=== PATIENT | female | born 1940 | race Caucasian/White ===

== ENCOUNTER → 2019-09-04 12:28 | Outpatient (CLI) | payer MEDICARE, SELFPAY ==
--- NOTE | 2019-09-04 12:37 | XR_ITS ---
PROCEDURE: XR KNEE RT 3V CLINICAL INDICATION: RT ANTERIOR KNEE PAIN COMPARISON: No exams were available for comparison FINDINGS: No fracture or dislocation. No lytic or blastic change. There is normal mineralization. On the lateral view there is a faint lucency along the tibial plateau centrally. This is nonspecific and not readily identified on AP view and may be due to overlying artifact. There are minimal osteoarthritic changes of the medial compartment and patellofemoral joint. Other findings:Small suprapatellar effusion IMPRESSION: Minimal osteoarthritic change medial compartment and patellofemoral joint with small knee joint effusion Faint lucency over the tibial plateau on the lateral view nonspecific and may be due to artifact. If pain persists, CT or MRI may be of further value. Dictated by: José Miguel Campuzano MD 09/04/2019 15:21 Electronically signed by José Miguel Campuzano MD in [facility] 09/04/2019 15:21
== END ==
PROVIDERS: PCP Internal Medicine Adolescent Medicine; Visit Provider Internal Medicine Adolescent Medicine
DX: M25.561 Pain in right knee (principal)
CPT/HCPCS: 73562

== ENCOUNTER → 2019-10-02 12:25 | Outpatient (CLI) | payer MEDICARE, SELFPAY ==
--- NOTE | 2019-10-02 12:28 | CT_ITS ---
PROCEDURE: CT KNEE RT WO CON CLINICAL HISTORY: RT KNEE INJURY, RT MEDIAL KNEE PAIN Medial knee pain following injury COMPARISON: XR KNEE RT 3V from 09/04/2019 TECHNIQUE: Axial images obtained with sagittal and coronal reformats. All CT scans at the facility use one or more dose reduction, viz: automated exposure control, ma/kV adjustment per patient size (including targeted exams where dose is matched to indication, i.e. head), or iterative reconstruction technique. FINDINGS: No obvious fracture or dislocation is evident. There are mild osteoarthritic changes of the medial compartment and patellofemoral joint. There is a small knee joint effusion. No fat fluid level evident. There is a small Dobbins's cyst. IMPRESSION: 1. No acute fracture. 2. Mild osteoarthritic change. 3. Knee joint effusion Dictated by: José Miguel Campuzano MD 10/03/2019 12:26 Electronically signed by José Miguel Campuzano MD in [facility] 10/03/2019 12:26
== END ==
PROVIDERS: PCP Internal Medicine Adolescent Medicine; Visit Provider Internal Medicine Adolescent Medicine
DX: S80.01XA Contusion of right knee, initial encounter (principal); M25.561 Pain in right knee
CPT/HCPCS: 73700

== ENCOUNTER → 2020-03-16 07:12 | Outpatient (CLI) | payer MEDICARE, SELFPAY ==
--- NOTE | 2020-03-16 | CA_ITS ---
APPROVED REPORT Exam: Exercise Treadmill Technologist: Lucie Hummel Ht: 5 ft 0 in Wt: 140 lbs BSA: 1.60 m2 HR: 73 bpm BP: 151/74 mmHg Indications: Chest pain Stress Test Details Test: Vu HR Resting HR: 80 bpm Max Heart Rate (APMHR): 140 bpm Max HR Achieved: 169 bpm Target HR (85% APMHR): 119 bpm % of APMHR: 120 Recovery HR: 89 bpm BP Resting BP: 151.0/74.0 mmHg Max BP: 202.0/91.0 mmHg Recovery BP: 172.0/81.0 mmHg ECG Clinical Exercise duration: 04:20 min Highest Stage Achieved: Exercise capacity: 7.0 METs Stress ECG Conclusion Resting ECG: Sinus rhythm Vu protocol completed. Patient exercised 04:24. Test stopped due to shortness of breath. Symptoms: Shortness of breath at peak exercise. Resolved in recovery. No chest pain. Arrhythmias/Ectopy: Occasional PAC ST-T Changes: Less than 1.[address] depression. Conclusion: Images to follow. Test Summary RECOVERY 04:00 0.0 0.0 91 . 202/ 91 . . REST 16:01 0.0 0.0 80 . 151/ 74 . . Stage 1 01:00 10.0 1.7 98 . . . . Stage 1 02:00 10.0 1.7 116 . . . . Stage 1 03:00 10.0 1.7 129 . 158/ 80 . . Stage 2 . . . . . . . Cardiolite injected Stage 2 01:00 12.0 2.5 138 . . . . Stage 2 01:20 12.0 2.5 140 . . . Stop exercise at 04:20 RECOVERY 01:00 0.0 0.0 121 . 170/ 88 . . RECOVERY 02:00 0.0 0.0 144 . 170/ 88 . . RECOVERY 03:00 0.0 0.0 98 . 170/ 88 . . RECOVERY 04:00 0.0 0.0 91 . 202/ 91 . . RECOVERY 05:00 0.0 0.0 90 . 172/ 81 . . RECOVERY 05:20 0.0 0.0 91 . 172/ 81 . . Electronically signed by : He Gutierrez, 03/16/2020 19:48:34
--- NOTE | 2020-03-16 07:19 | NM_ITS ---
APPROVED REPORT Exam: Nuclear Stress Test Indication: calli hebert c.p., jorden ekg Patient Location: Outpatient Stress Tech: Lucie Hummel [place] Tech:MARY Tan RT (R)(N)(M) Ht: 5 ft 0 in Wt: 140 lbs Bra Size: 34D HR: 73 bpm BP: 151/74 mmHg BSA: 1.60 m2 History: calli hebert c.p., jorden ekg Procedure: Patient exercised on Vu protocol 5:00 minutes and sec, resting heart rate 73 bpm, resting blood pressure 151/74 mmHg, with exercise maximum heart rate achived was 169 bpm which is % of the maximum predicted heart rate and blood pressure was 202/98 mmHg. Patient denied any complaint of chest pain. Patient has Adequate exercise capacity, achieved 7.0 METs of workload on treadmill, the blood pressure response to exercise was Hypertensive. Electrocardiogram Resting electrocardiogram shows sinus rhythm nonspecific ST-T changes, with exercise there is a millimeter ST segment depression noted from the baseline EKG which were more pronounced in the recovery. The EKG portion of the exercise Myoview is positive for ischemia. Cardiac Stress and Resting SPECT Images: Cardiac Stress and Resting SPECT images were obtained using technetium 99m Myoview 31.5 mCi stress and 10.35 mCi at rest. Gated SPECT for analysis of segmental wall motion and calculation of the ejection fraction also done. Cardiac stress and resting SPECT images show uniform myocardial activity without segmental perfusion abnormality, computer derived ejection fraction is over 65% with no regional wall motion abnormality, right ventricle is normal size and contractility. Conclusion: 1. The EKG portion of the exercise Myoview is positive for ischemia, patient has adequate exercise capacity achieved 7 mets of workload on treadmill, the blood pressure response to exercise was hypertensive, there was no exercised induced chest discomfort. 2. No scintigraphic evidence of reversible ischemia seen at this level of exercise, computer derived ejection fraction is over 65% with no regional wall motion abnormality, right ventricle is normal size and contractility. 3. Equivocal exercise myocardial perfusion imaging Electronically signed by : He Gutierrez, 03/16/2020 19:51:42
[2020-03-20] VITALS (7 sets, daily range): BP systolic 128–166; BP diastolic 69–89; PULSE 63–83; RESP 18–20; TEMP 36.7; O2SAT 97–99; BMI 27.3
[2020-03-20 13:11] LABS: Basophils # 0.1 K/mm3 (0-0.2); Basophils % 0.8 % (0.1-2.0); Chloride 104 mmol/L (98-107); Eosinophils % 0.4 % (0.1-12.0); Hematocrit 45.5 % (37.0-47.0); Lymphocytes # 2.3 K/mm3 (0.7-4.5); Lymphocytes % 31.7 % (10-50); Mean Corpuscular Volume 96.8 fl (81-99); Mean Platelet Volume 7.3 fl (7.4-10.4); Monocytes # 0.4 K/mm3 (0.1-1.0); Neutrophils # 4.4 K/mm3 (1.8-7.8); Neutrophils % 62.2 % (37.0-80.0); Platelet Count 275 K/mm3 (142-424); Potassium 3.6 mmoL/L (3.5-5.1); Red Cell Distribution Width 13.4 % (11.5-17.5); Sodium 140 mmol/L (136-145); White Blood Count 7.1 K/mm3 (4.8-10.8)
[2020-03-20 13:14] LABS: Anion Gap 12.6 mEq/L (5-15); Blood Urea Nitrogen 15 mg/dl (7-17); Carbon Dioxide 27 mmol/L (22.0-30.0); Creatinine Clearance Estimated 45 mL/min (50-200); Estimated Glomerular Filt Rate 69 ml/min (>60); GFR (African American) 84 ML/MIN (>60)
[2020-03-20 13:20] LABS: Calcium 9.5 mg/dl (8.4-10.2)
[2020-03-20 13:29] LABS: Glucose 163 mg/dl (74-100)
--- NOTE | 2020-03-20 16:35 | HMH.PHACLD ---
Vanesa Munoz has received discharge medication counseling on the following medications: NEW MEDICATIONS: BRILINTA, ASPIRIN, ATORVASTATIN, METOPROLOL DRUG MONOGRAPHS WERE GIVEN AND PATIENT DID NOT HAVE ANY QUESTIONS. PATIENT WILL NOT BE STARTED ON AN GOGO OR ARB AT THIS TIME. THIS IS DOCUMENTED ON CHECKLIST BY
== END ==
PROVIDERS: Internal Medicine; PCP Internal Medicine Adolescent Medicine; Visit Provider Internal Medicine Adolescent Medicine
DX: R07.9 Chest pain, unspecified (principal); R94.31 Abnormal electrocardiogram [ECG] [EKG]
CPT/HCPCS: 78452; 80048; 85025; 93017; A9502

== ENCOUNTER → 2020-03-20 12:16 | Day surgery (SDC) | payer MEDICARE, SELFPAY ==
[2020-03-20] VITALS (10 sets, daily range): BP systolic 128–148; BP diastolic 59–83; PULSE 67–81; RESP 16–20; O2SAT 97–100; BMI 26.3
--- NOTE | 2020-03-20 12:21 | IR_ITS ---
APPROVED REPORT Patient Location: Outpatient Solution Advisor: MARY Mabry RT (R) PROCEDURES Left heart catheterization Left ventriculogram Selective coronary angiogram Drug-eluting stent deployment to the proximal LAD INDICATION Coronary artery disease, Unstable angina, Informed consent was obtained prior to the procedure. COMPLICATIONS NONE Estimated Blood Loss: LESS THAN 10 ML TECHNIQUE One percent lidocaine used to anesthetize the right anterior aspect of the wrist. The right radial artery was accessed via the Seldinger technique. A 6 Mongolian sheath was placed in the right radial artery. 2.5 mg of verapamil, 800 mcg of nitroglycerin, 1mg Lidocaine and 5000 U Heparin were given through the arterial sheath. The trap catheter was also used to perform left heart catheterization, left ventriculogram and selective coronary angiogram. At the end of the diagnostic angiogram therapeutic heparin was administered giving a therapeutic ACT. An EBU 3.5 guide catheter was used to intubate the left main artery and a Choice PT extra-support wire was placed distally in the LAD. A 3 mm x 18 mm resolute ronn stent was deployed at 18 lisandro reducing the severe stenosis to 0%. The 2 diagonal arteries that were jailed in the process remained open with MAXIMINO-3 flow. After achieving excellent angiographic results with MAXIMINO-3 flow down the vessel before and after the procedure the apparatus was removed the sheath was removed good hemostasis was achieved using TR banding patient was transferred to the postop holding area in stable condition ANGIOGRAPHIC RESULTS The left main artery Normal The left anterior descending artery Has an eccentric 70 to 80% proximal stenosis followed by additional 30% mid vessel stenoses. There is a large first diagonal artery which has an ostial 50 to 60% stenosis while a second large diagonal artery has an ostial 50% and a proximal 60 to 70% stenosis. The circumflex artery Is a nondominant yet still large vessel which has a 50% stenosis in a proximal large bifurcating second obtuse marginal artery. The right coronary artery Is dominant and has proximal 20% mid vessel 30 to 40% stenoses The CONNER ventriculogram reveals Hyperdynamic at 75% The left ventricular end-diastolic pressure 10 mmHg IMPRESSION Severe single-vessel coronary disease involving the proximal LAD Successful stenting the proximal ID severe disease reduced to 0% with one drug-eluting stent Persistent moderate to severe stenoses in the ostial proximal segment of the large first and second diagonal arteries Hyperdynamic ventricle Normal left ventricular end-diastolic pressure PLAN 1. Brilinta plus aspirin 2. LDL less than 55 3. Cardiac rehabilitation 4. Avoidance of tobacco products 5. I recommend treating the bifurcating diagonal arteries medically. Should patient develop recalcitrant angina we could consider opening these vessels however medical literature supports medical management especially given the MAXIMINO-3 flow down these vessels. Electronically signed by : Seun Beebe, 03/20/2020 13:24:55
[2020-03-20 14:05] LABS: CATHL Activated Clotting Time 254 SEC (74-125)
== END ==
PROVIDERS: PCP Internal Medicine Adolescent Medicine; Visit Provider Internal Medicine
DX: R94.31 Abnormal electrocardiogram [ECG] [EKG]; R94.39 Abnormal result of other cardiovascular function study; Z82.49 Family history of ischemic heart disease and other diseases of the circulatory system; I25.118 Atherosclerotic heart disease of native coronary artery with other forms of angina pectoris; Z88.0 Allergy status to penicillin; Z79.82 Long term (current) use of aspirin; Z79.899 Other long term (current) drug therapy
CPT/HCPCS: 85347; 92928; 93458; 99152; 99153; C1725; C1769; C1876; C9600; J1644; Q9967

== ENCOUNTER 2020-08-17 12:57 | Day surgery (SDC) | payer MEDICARE, SELFPAY ==
[2020-08-17] VITALS (10 sets, daily range): BP systolic 115–172; BP diastolic 45–85; PULSE 66–84; RESP 16–18; TEMP 36.6; O2SAT 94–98; BMI 25.4
--- NOTE | 2020-08-17 | IR_ITS ---
APPROVED REPORT Patient Location: Outpatient Degre[facility] Solution Reclaimer: MARY Parrish RT (R) PROCEDURES Left heart catheterization Left ventriculogram Selective coronary angiogram Drug-eluting stent deployment to the ostial through proximal and mid first diagonal artery in a contiguous manner Drug-eluting stent deployment to the ostial proximal left main artery INDICATION Coronary artery disease, Angina pectoris/unstable angina, Dynamic EKG changes Informed consent was obtained prior to the procedure. COMPLICATIONS None Estimated Blood Loss: less than 10 ml TECHNIQUE One percent lidocaine used to anesthetize the right anterior aspect of the wrist. The right radial artery was accessed via the Seldinger technique. A 6 Namibian sheath was placed in the right radial artery. 2.5 mg of verapamil, 800 mcg of nitroglycerin, 1mg Lidocaine and 5000 U Heparin were given through the arterial sheath. The Agnes catheter was also used to perform left heart catheterization, left ventriculogram and selective coronary angiogram. At the end the diagnostic angiogram therapeutic heparin was administered producing a therapeutic ACT. A Choice PT extra-support wire and guide liner were used to provide angioplasty to the first diagonal artery. Each time manipulation was being performed or a guide liner was advanced into the left main artery there was significant dampening with profound EKG abnormalities. Angiography demonstrated a severe ostial left main stenosis and it was decided due to the severe dampening with loss of aortic pressure and dynamic EKG changes to stent the ostial left main artery. A 3.5 x 8 mm resolute ronn stent was deployed at 20 lisandro reducing the stenosis and allowing the procedure to proceed without dampening or EKG changes. Eventually the apparatus was removed and an EBU 3.75 guide catheter was used to cannulate the left main artery however there was difficulty getting this in the left main artery therefore a 6 Namibian JL 3 guide catheter was eventually used to cannulate the left main artery. A Choice PT wire was placed into the diagonal artery and eventually this was predilated which allowed delivery of a 2 mm x 26 mm resolute ronn stent at 18 lisandro reducing the critical and severe stenosis to 0%. The stent stuck back into the ostial segment of the diagonal artery just into the left anterior descending artery. After achieving excellent angiographic results with MAXIMINO II flow at the beginning of the procedure followed by MAXIMINO-3 at the end of the procedure and additional stent was placed into the left main artery because it appeared the wire went through a side strut. Prior to stenting the diagonal artery 3.5 mm balloon was used to open the side struts to allow advancement of the guide liner and better cannulation of the JL 3 guide catheter. Because this was the left main artery with a side strut access it was decided another 3.5 x 8 mm resolute ronn stent should be placed in the ostial proximal segment of the left main artery. This was deployed at 24 lisandro and reducing the stenosis to 0%. Excellent angiographic results were obtained. At the end of the procedure the apparatus was removed the sheath was removed and hemostasis was achieved using TR banding patient was transferred to the postop holding in stable condition. Throughout the interventional procedure additional heparin was administered to maintain the therapeutic ACT ANGIOGRAPHIC RESULTS The left main artery Is an ostial eccentric 80% stenosis The left anterior descending artery Has a stent in the proximal segment which is widely patent free of in-stent restenosis with excellent proximal distal transitioning. The mid segment has additional 20 t
[2020-08-17 13:32] LABS: Basophils # 0.1 K/mm3 (0-0.2); Basophils % 0.7 % (0.1-2.0); Eosinophils # 0.1 K/mm3 (0.0-0.4); Eosinophils % 0.6 % (0.1-12.0); Hematocrit 46.7 % (37.0-47.0); Hemoglobin 16.1 g/dL (12.2-16.2); Lymphocytes # 2.3 K/mm3 (0.7-4.5); Lymphocytes % 26.7 % (10-50); Mean Corpuscular HGB Conc 34.4 g/dL (31.8-35.4); Mean Corpuscular Hemoglobin 33.8 pg (27.0-31.2); Mean Corpuscular Volume 98.1 fl (81-99); Mean Platelet Volume 7.6 fl (7.4-10.4); Monocytes # 0.4 K/mm3 (0.1-1.0); Monocytes % 4.6 % (1.7-9.3); Neutrophils # 5.8 K/mm3 (1.8-7.8); Neutrophils % 67.4 % (37.0-80.0); Platelet Count 271 K/mm3 (142-424); Red Blood Count 4.76 M/mm3 (4.20-5.40); Red Cell Distribution Width 13.1 % (11.5-17.5); White Blood Count 8.6 K/mm3 (4.8-10.8)
[2020-08-17 13:34] LABS: Chloride 102 mmol/L (98-107)
[2020-08-17 13:35] LABS: Potassium 3.7 mmoL/L (3.5-5.1); Sodium 139 mmol/L (136-145)
[2020-08-17 13:38] LABS: Anion Gap 11.7 mEq/L (5-15); Blood Urea Nitrogen 18 mg/dl (7-17); Calcium 9.5 mg/dl (8.4-10.2); Carbon Dioxide 29 mmol/L (22.0-30.0); Creatinine Clearance Estimated 45 mL/min (50-200); Estimated Glomerular Filt Rate 60 ml/min (>60); GFR (African American) 73 ML/MIN (>60); Glucose 153 mg/dl (74-100)
[2020-08-17 14:04] LABS: Coronavirus 19 IgG Antibody Negative (Negative)
[2020-08-17 14:05] LABS: Coronavirus 19 IgM Antibody Positive (Negative)
[2020-08-17 15:24] LABS: CATHL Activated Clotting Time 281 SEC (74-125)
[2020-08-17 15:26] LABS: CATHL Activated Clotting Time 303 SEC (74-125)
--- NOTE | 2020-08-17 15:41 | HMH.PHACLD ---
Vanesa Munoz has received discharge medication counseling on the following medications: PATIENT IS CURRENTLY TAKING ASPIRIN 81 MG DAILY, BRILINTA 90 MG BID, LOSARTAN 25 MG DAILY, ATORVASTATIN 40 MG HS, AND METOPROLOL 50 MG DAILY. PATIENT ALSO IS PRESCRIBED ISOSORBIDE MONONITRATE ER 30 MG DAILY.
--- NOTE | 2020-08-20 08:11 | HMH.PHACLD ---
Vanesa Munoz has received discharge medication counseling on the following medications: CONTINUE MEDICATIONS: METOPROLOL, LOSARTAN, LIPITOR, BRILINTA, ASPIRIN
== END 2020-08-17 18:38 | disposition home or self-care (01) ==
LOC: CATHLAB 13:01
PROVIDERS: PCP Internal Medicine Adolescent Medicine; Visit Provider Internal Medicine
DX: I25.110 Atherosclerotic heart disease of native coronary artery with unstable angina pectoris (principal); I10 Essential (primary) hypertension; Z88.0 Allergy status to penicillin; Z79.01 Long term (current) use of anticoagulants; Z79.82 Long term (current) use of aspirin; Z79.899 Other long term (current) drug therapy; R50.9 Fever, unspecified
CPT/HCPCS: 80048; 85025; 85347; 86328; 92928; 93458; 99152; 99153; C1725; C1769; C1876; C9600; J1644; Q9967; U0003

== ENCOUNTER → 2020-08-19 10:21 | Outpatient (CLI) | payer MEDICARE, SELFPAY ==
[2020-08-19 10:43] LABS: Basophils # 0.1 K/mm3 (0-0.2); Basophils % 0.7 % (0.1-2.0); Eosinophils # 0.1 K/mm3 (0.0-0.4); Eosinophils % 0.8 % (0.1-12.0); Hematocrit 45.8 % (37.0-47.0); Hemoglobin 14.6 g/dL (12.2-16.2); Lymphocytes # 1.6 K/mm3 (0.7-4.5); Lymphocytes % 19.9 % (10-50); Mean Corpuscular HGB Conc 31.8 g/dL (31.8-35.4); Mean Corpuscular Hemoglobin 31.5 pg (27.0-31.2); Mean Corpuscular Volume 99.2 fl (81-99); Mean Platelet Volume 7.2 fl (7.4-10.4); Monocytes # 0.5 K/mm3 (0.1-1.0); Monocytes % 6.2 % (1.7-9.3); Neutrophils # 5.9 K/mm3 (1.8-7.8); Neutrophils % 72.5 % (37.0-80.0); Platelet Count 269 K/mm3 (142-424); Red Blood Count 4.62 M/mm3 (4.20-5.40); White Blood Count 8.1 K/mm3 (4.8-10.8)
[2020-08-19 11:39] LABS: Chloride 103 mmol/L (98-107); Sodium 139 mmol/L (136-145)
[2020-08-19 11:40] LABS: Potassium 4.6 mmoL/L (3.5-5.1)
[2020-08-19 11:42] LABS: Blood Urea Nitrogen 20 mg/dl (7-17); Estimated Glomerular Filt Rate 53 ml/min (>60); GFR (African American) 65 ML/MIN (>60)
[2020-08-19 11:43] LABS: Anion Gap 11.6 mEq/L (5-15); Carbon Dioxide 29 mmol/L (22.0-30.0); Glucose 248 mg/dl (74-100)
== END ==
PROVIDERS: PCP Internal Medicine Adolescent Medicine; Visit Provider Internal Medicine
DX: Z95.5 Presence of coronary angioplasty implant and graft (principal); Z79.82 Long term (current) use of aspirin
CPT/HCPCS: 36415; 80048; 85025

== ENCOUNTER → 2021-02-10 12:30 | Outpatient (CLI) | payer MEDICARE, SELFPAY ==
[2021-02-10 13:12] LABS: Basophils # 0.1 K/mm3 (0-0.2); Basophils % 0.8 % (0.1-2.0); Eosinophils # 0.1 K/mm3 (0.0-0.4); Eosinophils % 1.6 % (0.1-12.0); Hematocrit 41.7 % (37.0-47.0); Hemoglobin 13.8 g/dL (12.2-16.2); Lymphocytes # 2.3 K/mm3 (0.7-4.5); Lymphocytes % 32.2 % (10-50); Mean Corpuscular HGB Conc 33.1 g/dL (31.8-35.4); Mean Corpuscular Hemoglobin 31.9 pg (27.0-31.2); Mean Corpuscular Volume 96.5 fl (81-99); Mean Platelet Volume 7.2 fl (7.4-10.4); Monocytes # 0.4 K/mm3 (0.1-1.0); Monocytes % 5.3 % (1.7-9.3); Neutrophils # 4.3 K/mm3 (1.8-7.8); Neutrophils % 60.1 % (37.0-80.0); Platelet Count 251 K/mm3 (142-424); Red Blood Count 4.32 M/mm3 (4.20-5.40); White Blood Count 7.1 K/mm3 (4.8-10.8)
[2021-02-10 15:09] LABS: Chloride 106 mmol/L (98-107)
[2021-02-10 15:10] LABS: Potassium 4.2 mmoL/L (3.5-5.1); Sodium 140 mmol/L (136-145)
[2021-02-10 15:13] LABS: Anion Gap 11.2 mEq/L (5-15); Blood Urea Nitrogen 18 mg/dl (7-17); Calcium 9.5 mg/dl (8.4-10.2); Carbon Dioxide 27 mmol/L (22.0-30.0); Estimated Glomerular Filt Rate 69 ml/min (>60); GFR (African American) 83 ML/MIN (>60); Glucose 166 mg/dl (74-100)
[2021-02-10 15:22] LABS: Coronavirus 19 IgG Antibody Positive (Negative)
[2021-02-10 15:23] LABS: Coronavirus 19 IgM Antibody Positive (Negative)
== END ==
PROVIDERS: PCP Internal Medicine Adolescent Medicine; Visit Provider Nurse Practitioner Family
DX: E78.2 Mixed hyperlipidemia (principal); I25.118 Atherosclerotic heart disease of native coronary artery with other forms of angina pectoris; R06.00 Dyspnea, unspecified; Z82.49 Family history of ischemic heart disease and other diseases of the circulatory system; Z95.5 Presence of coronary angioplasty implant and graft; Z01.818 Encounter for other preprocedural examination; Z20.822 Contact with and (suspected) exposure to COVID-19; Z86.16 Personal history of COVID-19
CPT/HCPCS: 36415; 80048; 85025; 86328; U0003

== ENCOUNTER 2021-02-11 08:52 | Day surgery (SDC) | payer MEDICARE, SELFPAY ==
[2021-02-11] VITALS (15 sets, daily range): BP systolic 115–143; BP diastolic 60–78; PULSE 66–99; RESP 16; TEMP 36.9; O2SAT 94–99; BMI 24.7
--- NOTE | 2021-02-11 | IR_ITS ---
APPROVED REPORT Patient Location: Outpatient [employer] Officer: MARY Yung RT (R) PROCEDURES Left heart catheterization Left ventriculogram Selective coronary angiogram Drug-eluting stent deployment to the left dominant circumflex artery Angioplasty to the left main artery INDICATION Coronary disease, Recalcitrant angina pectoris, Informed consent was obtained prior to the procedure. COMPLICATIONS None Estimated Blood Loss: Less than 10 mls TECHNIQUE One percent lidocaine used to anesthetize the right anterior aspect of the wrist. The right radial artery was accessed via the Seldinger technique. A 6 Moldovan sheath was placed in the right radial artery. 2.5 mg of verapamil, 800 mcg of nitroglycerin, 1mg Lidocaine and 5000 U Heparin were given through the arterial sheath. The Poppa catheter was used to perform left heart catheterization left ventriculogram and selective coronary angiogram. Therapeutic heparin was administered at the end of the diagnostic procedure and the guide catheter was used to intubate the left main artery. Choice PT extra-support wire was placed in the circumflex artery. Multiple balloons plus a guide liner were performed to predilate the circumflex artery as well as the struts into the left main artery. Ultimately the guide catheter did not provide enough support therefore it was exchanged for a JL 3 catheter. 2 mm balloons were deployed in the distal left main artery to make sure the struts were open getting into the circumflex artery. Eventually the JL 3 guide catheter was placed in the left main artery and a Choice PT floppy wire was placed in the circumflex artery. A 2.5 mm balloon was used to predilate the circumflex artery stenosis. Following this a 2.75 x 23 mm Xience drug-eluting stent was deployed at 16 lisandro reducing the severe to critical stenosis to 0%. MAXIMINO-3 flow was present before and after the procedure. At the end the procedure the apparatus was removed the sheath was removed good hemostasis was achieved using TR banding patient was transferred to the postop holding in stable condition ANGIOGRAPHIC RESULTS The left main artery Has a stent in the proximal through distal segment which is angiographically patent. The stent extends into the LAD. The left anterior descending artery Stent originating off the left main artery into the proximal portion is widely patent with no evidence of in-stent restenosis. The stent transitions nicely into the mid LAD with remaining vessel having 20% stenosis. A large stent bifurcates off the either ramus intermedius or high first diagonal artery which is also widely patent with excellent distal transitioning. The circumflex artery Is a nondominant yet still large vessel giving rise to a large second obtuse marginal artery. Between the first and second obtuse marginal artery 50% stenosis starts followed by a focal 90% stenosis extending into the second obtuse marginal artery. The third obtuse marginal artery has an ostial 30% smooth stenosis and is small in size The right coronary artery Is a dominant vessel with diffuse proximal and mid vessel 30% stenosis The CONNER ventriculogram reveals Normal 60% The left ventricular end-diastolic pressure 20 mmHg IMPRESSION Coronary disease as described above Successful angioplasty the left main artery extending into the circumflex artery Successful stent to the mid circumflex artery severe to critical disease reduced to 0% with 1 drug-eluting stent Normal ejection fraction Mildly elevated LVEDP PLAN 1. Dual antiplatelet therapy 2. Cardiac rehabilitation 3. LDL less than 55 4. Avoidance of tobacco products 5. Risk factor modification Electroni
--- NOTE | 2021-02-11 08:56 | CA_ITS ---
APPROVED REPORT EXAM: Comprehensive 2D, Doppler, and color-flow Echocardiogram Datawarehouse Developer: Graciela Maloney, SHAKIR, RVS Ht: 5 ft 2 in Wt: 135lbs BSA: 1.62 BP: 162/78 mmHg Indications: Chest Pain, Shortness of Breath, Hyperlipidemia, Hypertension/HDD 2D Dimensions IVSd 0.65 cm LVEF (Visual) 68.00 % PWd 0.70 cm LA Volume 26.70 mL LVDd 4.16 cm LA Volume Index 16.50 mL/m2 (M/F) 16-34 LVDs 2.60 cm Aortic Root 2.46 cm Left Atrium 2.67 cm LVOT 1.66 cm (M/F) 1.5-2.5 M-Mode Dimensions LA Diam 2.70 cm (1.9-4.0) Ao Diam 2.64 cm (2.0-3.7) EPSs 0.22 cm TAPSE 1.88 (<1.7) LV Diastology E Decel Time 263.00 (160-240 msec) E/A Ratio 0.75 MED E' 5.00 (< 7 cm/sec) MED A' 12.00 cm/s E'/MED E' Ratio 11.42 (>14) LAT E' 5.70 (<10 cm/sec) LAT A' 11.60 cm/s E/LAT E' Ratio 10.02 (>14) Pulm Vein s 28.00 cm/sec Pulm Vein d 43.00 cm/sec Ar-A Duration 103.00 msec Aortic Valve LVOT Max 98.00 (70-110 cm/s) LVOT VTI 24.35 cm AoV Peak Jaime. 139.00 (50-130 cm/s) AO Peak GR. 7.70 mmHg AO Mean GR. 3.70 (<5 mmHg) AO VTI 28.95 (18-25 cm) DORIE (VTI) 1.82 (2.5-4.5 cm2) Mitral Valve MV E Max Jaime. 57.00 (40-130 cm/s) MV A Velocity 76.00 (40-130 cm/s) E/A Ratio 0.75 MV Decel. Time 263.00 (160-240 ms) MV Mean Gr. 1.10 (<2mmHg) MV PHT 77.00 ms Pulmonary Valve PV Peak Velocity 76.00 (50-150 cm/s) Tricuspid Valve TR P. Velocity 264.00 cm/s RAP Estimate 10.00 mmHg RVSP 37.80 mmHg Left Ventricle Left atrium is mildly enlarged, left ventricle is normal size, mild concentric left ventricular hypertrophy, visually estimated ejection fraction 55% with no regional wall motion abnormality, grade 1 diastolic dysfunction seen without tissue Doppler evidence of raise left atrial pressure. Right Ventricle Right atrium and right ventricle are normal size and contractility. Aortic Valve Aortic valve is grossly normal, there is no aortic stenosis or aortic insufficiency. Mitral Valve Mitral valve leaflets are minimally thickened, there is mild mitral regurgitation. Tricuspid Valve Tricuspid valve grossly normal, there is mild tricuspid regurgitation, calculated right ventricular systolic pressure within normal range. Pulmonic Valve Pulmonic valve is poorly visualized. Great Vessels Aortic root is normal size. Pericardium No significant pericardial effusion noted. Conclusion 1. Mildly enlarged left atrium, normal left ventricular size, mild concentric left ventricular hypertrophy, visually estimated ejection fraction 55% with no regional wall motion abnormality, grade 1 diastolic dysfunction seen without tissue Doppler evidence of raise left atrial pressure. 2. Mild mitral and tricuspid regurgitation, calculated right ventricular systolic pressure within normal range. 3. No significant pericardial effusion noted. Electronically signed by : He Gutierrez, 02/11/2021 15:39:03
[2021-02-11 13:05] LABS: CATHL Activated Clotting Time 248 SEC (74-125)
[2021-02-11 13:06] LABS: CATHL Activated Clotting Time > 400 SEC (74-125)
--- NOTE | 2021-02-11 14:58 | HMH.PHACLD ---
Vanesa Munoz has received discharge medication counseling on the following medications: CONTINUED MEDICATIONS: BRILINTA, ASPIRIN, ATORVASTATIN BETA AMY AND GOGO/ARB ARE BEING HELD FOR NOW. DOCUMENTED THAT PROVIDER WILL RE-EVALUATE IN OFFICE.
== END 2021-02-11 15:49 | disposition home or self-care (01) ==
LOC: CATHLAB 08:54
PROVIDERS: PCP Internal Medicine Adolescent Medicine; Visit Provider Internal Medicine
DX: E78.5 Hyperlipidemia, unspecified (principal); I25.118 Atherosclerotic heart disease of native coronary artery with other forms of angina pectoris; R06.00 Dyspnea, unspecified; Z82.49 Family history of ischemic heart disease and other diseases of the circulatory system; Z95.5 Presence of coronary angioplasty implant and graft; I10 Essential (primary) hypertension
CPT/HCPCS: 85347; 92920; 92928; 93306; 93458; 99152; 99153; C1725; C1769; C1875; C9600; J1644; Q9967

== ENCOUNTER → 2021-02-22 15:02 | Outpatient (CLI) | payer MEDICARE, SELFPAY ==
--- NOTE | 2021-02-22 15:07 | US_ITS ---
PROCEDURE: US GALLBLADDER CLINICAL INDICATION: chest pain Pain is COMPARISON: No exams were available for comparison FINDINGS: Pancreas: Unremarkable/Not well seen Liver: Unremarkable. There is appropriate direction of blood flow within a non dilated portal vein. Right kidney: Unremarkable appearing. No hydronephrosis. Gallbladder: No stones are evident. There is no gallbladder wall thickening. Common duct is normal in diameter. IMPRESSION: Negative gallbladder ultrasound. No stones evident. Dictated by: José Miguel Campuzano MD 02/23/2021 09:47 José Miguel Campuzano MD in [facility] 02/23/2021 09:47
== END ==
PROVIDERS: PCP Internal Medicine Adolescent Medicine; Visit Provider Nurse Practitioner Family
DX: R07.9 Chest pain, unspecified (principal)
CPT/HCPCS: 76705

== ENCOUNTER 2023-04-27 17:15 | Emergency (ER) | payer MEDICARE, SELFPAY ==
[2023-04-27 17:16] VITALS: BP 155/72; PULSE 101; RESP 16; TEMP 37.7; O2SAT 99; BMI 23.3
--- NOTE | 2023-04-27 17:20 | ECG_ITS ---
APPROVED REPORT Exam: Resting ECG HR:106 bpm ECG Measurements Heart Rate 106 AXES AZ 133 P 44 QRSd 73 QRS 39 QT 319 T 22 QTc 381 Conclusion SINUS TACHYCARDIA LOW QRS VOLTAGE IN PRECORDIAL LEADS [QRS DEFLECTION < 1.0 mV IN CHEST LEADS] ABNORMAL RHYTHM ECG UNCONFIRMED REPORT Electronically signed by : Rizwan Erickson MD 04/28/2023 16:19:43
[2023-04-27 17:26] VITALS: BP 155/72; PULSE 102; O2SAT 97
[2023-04-27 17:30] VITALS: BP 148/57; PULSE 101; O2SAT 97
--- NOTE | 2023-04-27 17:37 | XR_ITS ---
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 Views: 1 view. COMPARISON: CR CXR CHEST(2 VIEWS-NOT PORTABLE) 03/10/2017 1:48 AM FINDINGS: Lungs: Hyperlucent changes are demonstrated. Increase in the lung volumes is demonstrated. Calcified granuloma left mid lung. Pleural spaces: Unremarkable. No pleural effusion. No pneumothorax. Heart/Mediastinum: Unremarkable. No cardiomegaly. Diaphragm: There is flattening of the hemidiaphragms. Bones/joints: Unremarkable. IMPRESSION: No evidence of acute cardiopulmonary disease.
--- NOTE | 2023-04-27 17:38 | HMH.EDCP ---
Discharge Plan Disposition Patient Disposition: Home, Self-Care Prescriptions Prescriptions: New Paxlovid 300 mg (150 mg x 2)-100 mg tablets,dose pack See Rx Instructions .ROUTE .COMPLEX Qty: 30 0RF Rx Instructions: take TWO 150 mg tablets of nirmatrelvir with ONE 100 mg tablet of ritonavir twice daily for 5 days No Action memantine 5 mg tablet 10 mg PO BID nitroglycerin 0.4 mg tablet, sublingual 0.4 mg sublingual Q5M PRN (Reason: chest pain) Qty: 25 0RF Rx Instructions: do not exceed 3 doses per episode atorvastatin 40 mg tablet 40 mg PO DAILY Qty: 90 3RF metoprolol succinate 25 mg tablet extended release 24 hr See Rx Instructions .ROUTE .COMPLEX Qty: 30 11RF Dose Instruction: TAKE 1 TABLET BY MOUTH DAILY Rx Instructions: TAKE 1 TABLET BY MOUTH DAILY pantoprazole 40 mg tablet,delayed release (DR/EC) See Rx Instructions .ROUTE .COMPLEX Qty: 90 3RF Dose Instruction: TAKE 1 TABLET BY MOUTH DAILY Rx Instructions: TAKE 1 TABLET BY MOUTH DAILY ranolazine 500 mg tablet extended release 12 hr See Rx Instructions .ROUTE .COMPLEX Qty: 120 2RF Dose Instruction: TAKE 2 TABLETS BY MOUTH TWICE DAILY Rx Instructions: TAKE 2 TABLETS BY MOUTH TWICE DAILY isosorbide mononitrate 120 mg tablet extended release 24 hr See Rx Instructions .ROUTE .COMPLEX Qty: 90 1RF Dose Instruction: TAKE 1 TABLET BY MOUTH ONCE DAILY Rx Instructions: TAKE 1 TABLET BY MOUTH ONCE DAILY aspirin 81 MG tablet,delayed release (DR/EC) 81 mg PO DAILY Referrals Follow up/Referrals: Provider,Referral, [Referring] - See instructions Discharge ED Provider: Nazario Nowak Chest Pain HPI General Chief Complaint: Weakness Stated Complaint: chest pain Time Seen by Provider: 04/27/23 17:36 History of Present Illness HPI narrative: 89-year-old confused white female comes in complaining of some vague pain in her abdomen and chest area. It is hard to determine if she has had any shortness of breath or diaphoresis. She is accompanied by family members report that she is getting increasingly confused she has a smell tried urine on her. She used to live with her but her is now in the [facility] and she visits but is primarily living alone. Medical allergies include penicillins medical history includes hypertension 3 or 4 stents Related Data Home Medications Medication Instructions Recorded Confirmed aspirin 81 mg tablet,delayed 81 mg PO DAILY Blood thinner 03/20/20 10/25/22 release memantine 5 mg tablet 10 mg PO BID 02/03/21 10/25/22 Previous Rx's Medication Instructions Recorded atorvastatin 40 mg tablet 40 mg PO DAILY Cholesterol #90 tabs 08/19/21 metoprolol succinate 25 mg See Rx Instructions .Route 06/09/22 tablet,extended release 24 hr .COMPLEX #30 tabs pantoprazole 40 mg tablet,delayed See Rx Instructions .Route 09/19/22 release .COMPLEX #90 tabs nitroglycerin 0.4 mg sublingual 0.4 mg sublingual Q5M PRN chest 10/25/22 tablet pain #25 tabs ranolazine 500 mg tablet,extended See Rx Instructions .Route 02/17/23 release,12 hr .COMPLEX #120 tabs isosorbide mononitrate 120 mg See Rx Instructions .Route 03/10/23 tablet,extended release 24 hr .COMPLEX #90 tabs nirmatrelvir 300 mg (150 mg See Rx Instructions PO .COMPLEX 04/27/23 x2)-ritonavir 100 mg tablet,dose #30 tabs pack (Paxlovid) Allergies Allergy/AdvReac Type Severity Reaction Status Date / Time Penicillins [PENICILLINS] Allergy Unknown Verified 10/25/22 13:08 [facility] Disclaimer: The information contained in this section may have been updated after the patient was seen, as this information can be updated by other users. Medical History Abnormal cardiovascular stress test Abnormal EKG CAD (coronary artery disease) Dyspnea Family history of heart disease Gastroesophageal reflux disease Unsta
[2023-04-27 17:49] LABS: Basophils % 0.4 % (0.1-2.0); Eosinophils # 0.1 K/mm3 (0.0-0.4); Eosinophils % 0.5 % (0.1-12.0); Hemoglobin 13.6 g/dL (12.2-16.2); Lymphocytes % 10.1 % (10-50); Mean Corpuscular HGB Conc 31.7 g/dL (31.8-35.4); Mean Corpuscular Hemoglobin 32.5 pg (27.0-31.2); Mean Corpuscular Volume 102.8 fl (81-99); Mean Platelet Volume 8.2 fl (7.4-10.4); Monocytes # 0.5 K/mm3 (0.1-1.0); Monocytes % 4.7 % (1.7-9.3); Neutrophils # 8.4 K/mm3 (1.8-7.8); Neutrophils % 84.3 % (37.0-80.0); Platelet Count 229 K/mm3 (142-424); Red Blood Count 4.18 M/mm3 (4.20-5.40); Red Cell Distribution Width 13.1 % (11.5-17.5); White Blood Count 9.9 K/mm3 (4.8-10.8)
[2023-04-27 17:53] LABS: Chloride 98 mmol/L (98-107); Influenza A, PCR Not Detected (NotDetected); Influenza B, PCR Not Detected (NotDetected); Potassium 3.7 mmoL/L (3.5-5.1); Sodium 136 mmol/L (136-145)
[2023-04-27 17:55] LABS: Blood Urea Nitrogen 25 mg/dl (7-17); Creatinine Clearance Estimated 40 mL/min (50-200); Estimated Glomerular Filt Rate 69 ml/min (>60); GFR (African American) 83 ML/MIN (>60)
[2023-04-27 17:56] LABS: Alanine Aminotransferase 26 U/L (12-78); Albumin Level 4.4 g/dl (3.5-5.0); Albumin/Globulin Ratio 1.3 (1.1-1.8); Alkaline Phosphatase 68 U/L (38-126); Anion Gap 13.7 mEq/L (5-15); Aspartate Amino Transferase 28 U/L (14-36); Bilirubin,Total 0.6 mg/dl (0.2-1.3); Calcium 9.1 mg/dl (8.4-10.2); Carbon Dioxide 28 mmol/L (22.0-30.0); Globulin 3.3 g/dL (1.3-3.2); Glucose 176 mg/dl (74-100); Total Protein,Serum 7.7 g/dl (6.3-8.2)
[2023-04-27 18:00] VITALS: BP 149/63; PULSE 95; RESP 20; O2SAT 96
[2023-04-27 18:06] LABS: NT Pro Brain Natriuretic Pep. 417 pg/mL (0-450)
[2023-04-27 18:09] LABS: Troponin I < 0.01 ng/ml (0.00-0.034)
--- NOTE | 2023-04-27 18:15 | PC.NURSE ---
Patient and patient's family notified of plan of care
[2023-04-27 18:24] LABS: Coronavirus 19, PCR Detected (NotDetected)
--- NOTE | 2023-04-27 18:43 | PC.NURSE ---
Assisted patient to the bathroom and back to bed. Rechecked temperature. Patient's recheck was 102.1. MD notified. 1,000 mg of Tylenol given.
[2023-04-27 18:44] LABS: Microscopic, Urine URINE MICROSCOPIC (MICROSCOPIC)
[2023-04-27 18:46] LABS: Appearance,Urine CLEAR (Clear); Bilirubin,Urine Negative (Negative); Blood, Urine Negative (Negative); Color,Urine YELLOW (Yellow); Glucose,Urine (UA) 1+ (Negative); Ketones,Urine Negative (Negative); Leukocyte Esterase,Urine Negative (Negative); Nitrate,Urine Negative (Negative); PH,Urine 7.5 (5.0-8.5); Protein,Urine TRACE (Negative); Specific Gravity, Urine 1.015 (1.005-1.030); Urobilinogen,Urine 0.2 EU/dl (0.2)
[2023-04-27 19:02] LABS: Squamous Epithelial Cell,Urine Occasional #/hpf (0-5); WBC,Urine Occasional #/hpf (0-3)
[2023-04-27 19:25] VITALS: BP 139/63; PULSE 83; RESP 18; TEMP 36.8; O2SAT 96
== END 2023-04-27 19:40 | disposition home or self-care (01) ==
PROVIDERS: Emergency Provider Emergency Medicine; PCP Internal Medicine Adolescent Medicine
DX: R07.9 Chest pain, unspecified (principal); R53.1 Weakness; I25.110 Atherosclerotic heart disease of native coronary artery with unstable angina pectoris; K21.9 Gastro-esophageal reflux disease without esophagitis
CPT/HCPCS: 71045; 80053; 81001; 83880; 84484; 85025; 87636; 93005; 99284; 99285; C9803; U0003; U0005

== ENCOUNTER 2023-12-26 10:34 | Emergency (ER) | payer MEDICARE, SELFPAY ==
--- NOTE | 2023-12-26 | ECG_ITS ---
APPROVED REPORT Exam: Resting ECG HR:60 bpm ECG Measurements Heart Rate 60 AXES IA 129 P 69 QRSd 82 QRS 85 QT 461 T 70 QTc 461 Conclusion SINUS RHYTHM LOW QRS VOLTAGE IN PRECORDIAL LEADS [QRS DEFLECTION < 1.0 mV IN CHEST LEADS] BORDERLINE ECG UNCONFIRMED REPORT Electronically signed by : Rizwan Erickson MD 12/26/2023 21:53:59
[2023-12-26 10:42] VITALS: BP 157/80; PULSE 66; O2SAT 98
[2023-12-26 10:47] VITALS: BP 157/80; PULSE 65; RESP 18; TEMP 36.6; O2SAT 99; BMI 23.8
[2023-12-26 11:00] VITALS: BP 162/71; PULSE 71; O2SAT 97
--- NOTE | 2023-12-26 11:00 | ED_ITS ---
Discharge Plan Disposition Patient Disposition: Home, Self-Care Condition: Good Prescriptions Prescriptions: No Action memantine 5 mg tablet 10 mg PO BID nitroglycerin 0.4 mg tablet, sublingual 0.4 mg sublingual Q5M PRN (Reason: chest pain) Qty: 25 0RF Rx Instructions: do not exceed 3 doses per episode atorvastatin 40 mg tablet 40 mg PO DAILY Qty: 90 3RF isosorbide mononitrate 120 mg tablet extended release 24 hr See Rx Instructions .ROUTE .COMPLEX Qty: 90 1RF Dose Instruction: TAKE 1 TABLET BY MOUTH ONCE DAILY Rx Instructions: TAKE 1 TABLET BY MOUTH ONCE DAILY metoprolol succinate 25 mg tablet extended release 24 hr See Rx Instructions .ROUTE .COMPLEX Qty: 90 10RF Dose Instruction: TAKE 1 TABLET BY MOUTH DAILY Rx Instructions: TAKE 1 TABLET BY MOUTH DAILY ranolazine 500 mg tablet extended release 12 hr See Rx Instructions .ROUTE .COMPLEX Qty: 120 5RF Dose Instruction: TAKE 2 TABLETS BY MOUTH TWICE DAILY Rx Instructions: TAKE 2 TABLETS BY MOUTH TWICE DAILY pantoprazole 40 mg tablet,delayed release (DR/EC) See Rx Instructions .ROUTE .COMPLEX Qty: 90 2RF Dose Instruction: TAKE 1 TABLET BY MOUTH DAILY Rx Instructions: TAKE 1 TABLET BY MOUTH DAILY aspirin 81 MG tablet,delayed release (DR/EC) 81 mg PO DAILY Paxlovid 300 mg (150 mg x 2)-100 mg tablets,dose pack See Rx Instructions .ROUTE .COMPLEX Qty: 30 0RF Rx Instructions: take TWO 150 mg tablets of nirmatrelvir with ONE 100 mg tablet of ritonavir twice daily for 5 days Referrals Follow up/Referrals: Rizwan Erickson MD [Primary Care Provider] - See instructions Activity Restrictions/Add. Instructions Additional Instructions/Restrictions: You have been evaluated in the ED for your complaints. You may follow-up with your PCP in the next 3 to 5 days. Please return to ED for any new or worsening symptoms. Please follow-up with your recycling program manager. Clinical Impressions Clinical Impression: Headache, Dizziness Discharge ED Provider: Chivo Rooney Adult [facility] General Chief complaint: Dizziness Stated complaint: Dizzy, pain in back of head Time Seen by Provider: 12/26/23 10:59 Mode of Arrival: Ambulatory Source of Information: Patient and Relative Limitations: No Limitations Description of Symptoms (Recalled from ER Triage Doc. by RN): pt c/o weakness, dizziness and tingling pain in her sternum. pts daughter reports she has the sternal tingling and dizziness chronically. pt has a hx of dementia, most information gathered from her daughter. History of Present Illness HPI narrative: 83-year-old female with history of coronary artery disease s/p cardiac stents, GERD, HTN, HLD, presents today with daughter for evaluation concerning dizziness characterized as lightheadedness, nausea, mild generalized headache and central chest tingling present over the past couple days. Denies having any fevers, chills, shortness of breath, abdominal pain, dysuria, hematuria, diarrhea, constipation or any other associated symptoms. She notes that she feels generally fatigued. No other complaints. Related Data Home Medications Medication Instructions Recorded Confirmed aspirin 81 mg tablet,delayed 81 mg PO DAILY Blood thinner 03/20/20 10/25/22 release memantine 5 mg tablet 10 mg PO BID 02/03/21 10/25/22 Previous Rx's Medication Instructions Recorded atorvastatin 40 mg tablet 40 mg PO DAILY Cholesterol #90 tabs 08/19/21 nitroglycerin 0.4 mg sublingual 0.4 mg sublingual Q5M PRN chest 10/25/22 tablet pain #25 tabs isosorbide mononitrate 120 mg See Rx Instructions .Route 03/10/23 tablet,extended release 24 hr .COMPLEX #90 tabs nirmatrelvir 300 mg (150 mg See Rx Instructions PO .COMPLEX 04/27/23 x2)-ritonavir 100 mg tablet,dose #30 tabs pack (Paxlovid) metoprolol succinate 25 mg See Rx Instructions .Route 07/31/23 tablet,extended release 24 hr .COMPLEX #90 tabs ranolazine 500 mg tablet,extended See Rx Instructions .Route 08/28/23 release,12 hr .COMPLEX #120 tabs pantoprazole 40 mg tablet,delayed See Rx Instructions .Route 10/20/23 release .COMPLEX #90 tabs Allergies Allergy/AdvReac Type Severity Reaction Status Date / Time Penicillins [PENICILLINS] Allergy Unknown Verified 12/26/23 10:54 [facility] Disclaimer: The information contained in this section may have been updated after the p atient was seen, as this information can be updated by other users. Medical History Abnormal cardiovascular stress test Abnormal EKG CAD (coronary artery disease) Dyspnea Family history of heart disease Gastroesophageal reflux disease Unstable angina Social History Smoking Status: Never smoker alcohol intake: never substance use type: denies use current occupational status: retired Travel in the last 8 weeks: None household members: spouse housing: house current occupational exposures/hazards: No caffeine: Yes ROS Obtained: Yes All systems reviewed & no additional complaints except as documented Physical Exam General General appearance: alert and in no apparent distress Head Head exam: atraumatic and normocephalic Eye Eye exam: Present normal appearance, PERRL and EOMI ENT ENT exam: Present normal oropharynx and mucous membranes moist Neck Neck exam: Present full ROM; Absent meningismus Respiratory Respiratory exam: Absent respiratory distress, wheezes, stridor or accessory muscle use Cardiovascular Cardiovascular exam: Present normal rhythm Abdominal Exam Abdominal exam: Present soft; Absent distention, tenderness, guarding, rebound or rigidity Neurological Exam Neurological exam: Present alert, oriented X3 and CN II-XII intact; Absent motor sensory deficit Psychiatric Psychiatric exam: Present normal affect and normal mood Skin Skin exam: Present warm and dry Medical Decision Making Medical Records Medical records reviewed: Yes I reviewed the patient's medical records. Oliver Inquiry Pt receiving controlled substance: No Oliver was queried for this patient: No Vital Signs: 12/26/23 10:47 12/26/23 10:42 12/26/23 11:00 Temperature 98 F Temperature Source Oral Pulse Rate 66 71 Pulse Rate [Left] 65 Respiratory Rate 18 Blood Pressure 157/80 H 162/71 H Blood Pressure [Right Arm] 157/80 H Blood Pressure Mean [Right Arm] 105 Blood Pressure Source [Right Arm] Automatic Cuff Blood Pressure Position [Right Arm] Sitting 02 Sat by Pulse Oximetry 99 98 97 Oxygen Delivery Method Room Air Room Air Room Air Lab Data Lab Results 12/26/23 10:59: WBC 5.8, RBC 3.75 L, Hgb 13.5, Hct 38.8, MCV 103.6 H, MCH 36.0 H , MCHC 34.8, RDW 13.0, Plt Count 221, MPV 8.3, Neut % (Auto) 77.5, Lymph % (Auto) 17.6, Monroe % (Auto) 4.0, Eos % (Auto) 0.4, Baso % (Auto) 0.5, Neut # (Auto) 4.5, Lymph # (Auto) 1.0, Monroe # (Auto) 0.2, Eos # (Auto) 0.0, Baso # (Auto) 0.0, Sodium 138, Potassium 4.1, Chloride 105, Carbon Dioxide 27, Anion Gap 10.1, BUN 16, Creatinine 0.80, Estimated Creat Clear 39, Estimated GFR 68, Est GFR ( Amer) 83, Glucose 156 H, Calcium 9.1, Total Bilirubin 1.0, AST 27, ALT 24, Alkaline Phosphatase 80, Troponin I < 0.01, Total Protein 7.4, Albumin 4.3, Globulin 3.1, Albumin/Globulin Ratio 1.4 12/26/23 11:15: SARS-CoV-2 (PCR) Not detected, Influenza A Untype (PCR) Not detected, Influenza Type B (PCR) Not detected 12/26/23 10:59 12/26/23 10:59 Orders (Tests/Meds): ED MEDICATIONS Discontinued Medications Generic Name Dose Route Start Last Admin Trade Name Freq PRN Reason Stop Dose Admin Acetaminophen 1,000 mg 12/26/23 11:06 12/26/23 11:11 Acetaminophen 500mg Tab PO 12/26/23 11:07 1,000 mg ONCE ONE Administration Ondansetron HCl 4 mg 12/26/23 11:06 12/26/23 11:11 Ondansetron 4mg Odt SL 12/26/23 11:07 4 mg ONCE ONE Administration ORDERS Category Date Time Status CXR --portable [XR chest portable] Stat Exams 12/26/23 11:06 Taken CBC w/Auto Diff [Complete Blood Count Auto Diff] Stat Lab 12/26/23 10:59 Completed CMP [Comprehensive Metabolic Panel] Stat Lab 12/26/23 10:59 Completed Rapid PCR Covid and Flu A/B Stat Lab 12/26/23 11:15 Completed Trop I [Troponin I] Stat Lab 12/26/23 10:59 Completed Troponin I Q3H Lab 12/26/23 14:15 Ordered Troponin I Q3H Lab 12/26/23 17:15 Ordered ECG Data Tracing #1: I reviewed this ECG and interpreted as documented below: EKG personally interpreted by me. Normal sinus rhythm with a rate of [address] elevations are noted. Low voltage QRS. QTc of 461. HEART Score History (anamnesis): Slightly suspicious ECG: Normal Age: >65 years Risk factors: 3 or more risk factors Troponin: </= normal limit HEART Score: 4 Medical Decision Narrative: 83-year-old female with history of coronary artery disease s/p cardiac stents, GERD, HTN, HLD, presents today with daughter for evaluation concerning dizziness characterized as lightheadedness, nausea, mild generalized headache and central chest tingling present over the past couple days. Reports general fatigue. On assessment she was hemodynamically stable and in no acute distress. Afebrile. Abdomen was soft and nondistended and nontender to palpation. Chest is clear to auscultation bilaterally. No peripheral edema was noted. Nonfocal neurological exam. Other physical exam findings unremarkable. Differential diagnoses include but not limited to COVID, influenza, RSV, other viral syndrome, ACS, gastritis, gastroenteritis, electrolyte disturbance, among others. Patient's lab workup today with no elevation in WBC at 5.8. CMP was nonactionable. Negative COVID/influenza swab. Initial troponin less than 0.01. EKG did not show any ischemic changes. On reassessment the patient chico clinically stable and in no acute distress. She verbalized that she was ready to go home. I had discussion with patient concerning checking a second troponin given her history however she did not complain of any chest pain or shortness of breath and so decision was made to forego. I have discussed with patient concerning follow-up with her recycling program manager as well as her PCP. Provided with strict return ED precautions. She verbalized understanding and agreed. Subsequently discharged home in medically stable and in no acute distress. Critical Care Critical Care Time Critical Care Time: No
--- NOTE | 2023-12-26 11:06 | XR_ITS ---
FINAL REPORT CLINICAL HISTORY: cardiac w/u COMPARISON: 04/27/2023 FINDINGS: A single portable view of the chest was obtained. The heart size and pulmonary vascularity are within normal limits. The mediastinum is within normal limits. No acute pulmonary abnormality is identified. The bony thorax is intact. IMPRESSION: No active cardiopulmonary disease. Reviewed, Interpreted and Dictated by Jim Ching III, MD Transcribed by Beata Long Authenticated and [facility]
[2023-12-26] MEDS: ACETAMINOPHEN 500MG TAB 1000 MG PO (11:11)
[2023-12-26] MEDS: ONDANSETRON 4MG ODT 4 MG SL (11:11)
[2023-12-26 11:14] LABS: Basophils % 0.5 % (0.1-2.0); Eosinophils % 0.4 % (0.1-12.0); Hematocrit 38.8 % (37.0-47.0); Hemoglobin 13.5 g/dL (12.2-16.2); Lymphocytes % 17.6 % (10-50); Mean Corpuscular HGB Conc 34.8 g/dL (31.8-35.4); Mean Corpuscular Volume 103.6 fl (81-99); Mean Platelet Volume 8.3 fl (7.4-10.4); Monocytes # 0.2 K/mm3 (0.1-1.0); Neutrophils # 4.5 K/mm3 (1.8-7.8); Neutrophils % 77.5 % (37.0-80.0); Platelet Count 221 K/mm3 (142-424); Red Blood Count 3.75 M/mm3 (4.20-5.40); White Blood Count 5.8 K/mm3 (4.8-10.8)
[2023-12-26 11:18] LABS: Chloride 105 mmol/L (98-107); Sodium 138 mmol/L (136-145)
[2023-12-26 11:19] LABS: Potassium 4.1 mmoL/L (3.5-5.1)
[2023-12-26 11:21] LABS: Alanine Aminotransferase 24 U/L (12-78); Alkaline Phosphatase 80 U/L (38-126); Aspartate Amino Transferase 27 U/L (14-36); Blood Urea Nitrogen 16 mg/dl (7-17); Creatinine Clearance Estimated 39 mL/min (50-200); Estimated Glomerular Filt Rate 68 ml/min (>60); GFR (African American) 83 ML/MIN (>60)
[2023-12-26 11:22] LABS: Albumin Level 4.3 g/dl (3.5-5.0); Albumin/Globulin Ratio 1.4 (1.1-1.8); Anion Gap 10.1 mEq/L (5-15); Calcium 9.1 mg/dl (8.4-10.2); Carbon Dioxide 27 mmol/L (22.0-30.0); Globulin 3.1 g/dL (1.3-3.2); Glucose 156 mg/dl (74-100); Total Protein,Serum 7.4 g/dl (6.3-8.2)
[2023-12-26 11:28] LABS: Coronavirus 19, PCR Not Detected (NotDetected); Influenza A, PCR Not Detected (NotDetected); Influenza B, PCR Not Detected (NotDetected)
[2023-12-26 11:38] LABS: Troponin I < 0.01 ng/ml (0.00-0.034)
--- NOTE | 2023-12-26 12:31 | PC.NURSE ---
pt does not want to wait for serial troponins.
[2023-12-26 12:47] VITALS: BP 162/71; PULSE 71; RESP 18; TEMP 36.7; O2SAT 97
== END 2023-12-26 12:54 | disposition home or self-care (01) ==
PROVIDERS: Emergency Provider Emergency Medicine; PCP Internal Medicine Adolescent Medicine
DX: R51.9 Headache, unspecified (principal); R42 Dizziness and giddiness; R11.0 Nausea; I11.9 Hypertensive heart disease without heart failure; I25.119 Atherosclerotic heart disease of native coronary artery with unspecified angina pectoris; E78.5 Hyperlipidemia, unspecified; K21.9 Gastro-esophageal reflux disease without esophagitis; Z95.5 Presence of coronary angioplasty implant and graft
CPT/HCPCS: 71045; 80053; 84484; 85025; 87636; 93005; 99285

== ENCOUNTER 2024-02-23 11:03 | Outpatient (CLI) | payer MEDICARE, SELFPAY ==
--- NOTE | 2024-02-23 11:13 | NM_ITS ---
APPROVED REPORT Exam: Nuclear Stress Test Indication: CAD, HTN, HYPERLIPIDEMIA, FM HX, C.P., SOB,ABN EKG Patient Location: Outpatient Stress Tech: Jessica Hussein [place] Tech:MARY Tan RT (R)(N)(M) Ht: 5 ft 2 in Wt: 125 lbs Bra Size: D HR: 78 bpm BP: 161/67 mmHg BSA: 1.57 m2 TID: 1.14 BMI: 22.8 History: CAD, HTN, HYPERLIPIDEMIA, FM HX, C.P., SOB,ABN EKG Procedure: Patient received 0.4 mg of intravenous Lexiscan, resting heart rate 78 bpm, resting blood pressure 161/67 mmHg, with Lexiscan maximum heart rate achieved was 109 bpm which is % of the maximum predicted heart rate and blood pressure was 187/79 mmHg. With Lexiscan, patient denied any complaint of chest pain. Cardiac Stress and Resting SPECT Images: Cardiac Stress and Resting SPECT images were obtained using technetium 99m Myoview 31.2 mCi stress and 10.53 mCi at rest. Resting and stress imaging in supine and prone positions demonstrate no evidence of fixed or reversible perfusion defects. Gated imaging demonstrates normal global and regional LV systolic function. LVEF is calculated at 75%. Conclusion: No evidence of fixed or reversible perfusion defects. Gated imaging demonstrates normal global and regional LV systolic function. LVEF is calculated at 75%. Electronically signed by : Faye Morgan MD 02/26/2024 14:28:17
--- NOTE | 2024-02-23 11:30 | CA_ITS ---
APPROVED REPORT EXAM: Comprehensive 2D, Doppler, and color-flow Echocardiogram Inspecting Machine Adjuster: Sharon Briones RT(R) Ht: 5 ft 2 in Wt: 135lbs BSA: 1.62 BP: 150/62 mmHg Indications: CAD, CP, ROSALES, HTN, hyperlipidemia, Abn EKG 2D Dimensions LVEF (Godoy's) 68.40 % F: 54 - 74 LV Volume 58.20 mL F: 46 - 106 LV Volume Index 35.9 mL/m2 F: 29 - 61 LA Volume 17.40 mL LA Volume Index 10.74 mL/m2 (M/F) 16-34 EF AP4 72.40 % EF AP2 63.6 % EF BP 68.4 % GL Strain -20.6 % M-Mode Dimensions RVDd 2.54 cm (0.9-2.6) LA Diam 2.50 cm (1.9-4.0) LVDd 3.90 cm (3.5-5.7) LVDs 2.61 cm (3.5-5.7) IVSd 0.97 cm (0.6-1.1) PWd 1.14 cm (0.6-1.1) EF (Teich) 62.40% FS 33.10% EDV (Teich) 65.90 mL ESV (Teich) 24.80 mL LV Diastology E Decel Time 190 (160-240 msec) E/A Ratio 0.9 Mitral Valve MV E Max Jaime. 75.0 (40-130 cm/s) MV A Velocity 88.0 (40-130 cm/s) E/A Ratio 0.85 MV PHT 56.0 ms Tricuspid Valve TR P. Velocity 251.00 cm/s RAP Estimate 10.00 mmHg RVSP 35.20 mmHg Left Ventricle The left ventricle is normal size. The left ventricular systolic function is normal. The left ventricular ejection fraction is within the normal range. There is increased LV wall thickness. There is normal LV segmental wall motion. The left ventricular diastolic function is normal. LVEF 55%. Right Ventricle The right ventricle is normal size. The right ventricular systolic function is normal. Atria The left atrium size is normal. The right atrium size is normal. There is no Doppler evidence of interatrial shunt. Aortic Valve The aortic valve is mildly thickened. There is no aortic valvular stenosis. No aortic regurgitation is present. Mitral Valve Mild mitral annular calcification. The mitral valve leaflets are mildly thickened. No evidence of mitral valve stenosis. Trace mitral regurgitation. Tricuspid Valve The tricuspid valve leaflets are thin and pliable. Mild to moderate tricuspid regurgitation. RVSP is 20-25 mmHg. Pulmonic Valve The pulmonary valve is normal in structure. Mild pulmonic regurgitation. Great Vessels The aortic root is normal in size. The ascending aorta is normal in size. IVC is normal in size and collapses >50% with inspiration. Pericardium There is no pericardial effusion. Other Information Study Quality: Fair Conclusion Normal biventricular systolic function. Mild to moderate TR. Mild PI. Electronically signed by : Faye Morgan MD 02/28/2024 12:14:35
[2024-02-23] MEDS: SODIUM CHLORIDE 0.9% 10ML SYR (RAD ONLY) 10 ML IV ×2 (11:35→13:00)
[2024-02-23] MEDS: REGADENOSON 0.4MG/5ML SYRINGE 0.400000000000000022 MG IV (13:00)
--- NOTE | 2024-02-23 13:21 | CA_ITS ---
APPROVED REPORT Exam: Pharmacologic Technologist: Jessica Blair, Ht: 5 ft 2 in Wt: 135 lbs BSA: 1.62 m2 HR: 69 bpm BP: 161/67 mmHg Rhythm: NSR Indications: CP, CAD Medical History Medications: Isosorbide,,,,, Metoprolol,,,,, Pantoprazole,,,,, Atorvastatin,,,,, MeMANTINE,,,,, Ranolazine,,,,, MiTRoglycerin,,,,, Stress Test Details Test: LEXISCAN Reason for pharmacologic stress test: physical limitation. HR Resting HR: 78 bpm Max Heart Rate (APMHR): 136 bpm Max HR Achieved: 109 bpm Target HR (85% APMHR): 116 bpm % of APMHR: 80 Recovery HR: 75 bpm BP Resting BP: 161.0/67.0 mmHg Max BP: 187.0/79.0 mmHg Recovery BP: 160.0/63.0 mmHg ECG Resting ECG: NSR, low voltage QRS, non-specific T-wave changes in inferolateral leads, PVC Stress ECG: No significant ST changes Arrhythmia: Occasional PACs, PVCs Clinical Exercise duration: 04:00 min Highest Stage Achieved: Stress ECG Conclusion Symptoms: Atypical tingling sensation in the chest, mild head discomfort. No CP. Arrhythmias/Ectopy: Occasional PACs, PVCs ST-T Changes: No significant ST changes Conclusion: Nondiagnostic ECG portion of stress test due to baseline ECG abnormalities. Myoview images reported separately. Test Summary REST . . . . . . . Resting REST 04:15 . . 78 . 161/ 67 . . Stage 1 01:00 . . 103 . . . . Stage 2 01:00 . . 92 . 187/ 79 . . Stage 3 01:00 . . 85 . 172/ 67 . . Stage 4 01:00 . . 82 . 174/ 75 . Stop exercise at 04:00 RECOVERY 01:00 . . 81 . 173/ 74 . . RECOVERY 02:00 . . 78 . 173/ 74 . . RECOVERY 03:00 . . 73 . 160/ 63 . . RECOVERY 03:21 . . 76 . 160/ 63 . . Electronically signed by : Faye Morgan MD 02/26/2024 14:26:53
[2024-02-23] MEDS: ISOTOPE MYOVIEW (PER STUDY) 1 DOSE IV (13:46)
== END 2024-02-23 23:59 ==
LOC: RAD 11:04
PROVIDERS: PCP Internal Medicine Adolescent Medicine; Visit Provider Internal Medicine
DX: I25.118 Atherosclerotic heart disease of native coronary artery with other forms of angina pectoris; R06.00 Dyspnea, unspecified; E78.2 Mixed hyperlipidemia; R42 Dizziness and giddiness
CPT/HCPCS: 78452; 93017; 93018; 93306; A9502; J2785

== ENCOUNTER 2025-11-07 12:58 | Outpatient (CLI) | payer MEDICARE, SELFPAY ==
--- NOTE | 2025-11-07 13:00 | CA_ITS ---
FINAL REPORT CLINICAL HISTORY: dizziness and vertigo FINDINGS: RIGHT CAROTID: CCA PSV -89 cm/sec ICA PSV -80 cm/sec ICA/CCA PSV ratio -0.9. Comments: Mild plaque disease is noted. LEFTCAROTID: CCA PSV -105. cm/sec ICA PSV -119. cm/sec ICA/CCA PSV ratio -1.13. Comments: Mild plaque disease is noted. Antegrade flow is seen within the vertebral arteries. IMPRESSION: Carotid stenosis classified less than 50% Authenticated and ERN
== END 2025-11-07 23:59 | disposition home or self-care (01) ==
LOC: RT 12:59
PROVIDERS: PCP Internal Medicine Adolescent Medicine; Visit Provider Nurse Practitioner Family
DX: I65.23 Occlusion and stenosis of bilateral carotid arteries (principal)
CPT/HCPCS: 93880